=== PATIENT | male | born 1980 | race Caucasian/White ===

== ENCOUNTER 2016-05-17 09:23 | Emergency (ER) | payer BC ==
[~2016-05-17] VITALS: Ht 170.2 cm; Wt 78.0 kg
[2016-05-17 09:32] VITALS: BP 130/80
--- NOTE | 2016-05-17 09:41 | NUR ---
35/M presents to the ED for evaluation of left calm pain x3 weeks. Patient denies injury or trauma to left leg. Patient has mild bruising to left calf. No redness noted. Warm to touch. Patient is tender with palpation. Ambulatory with steady gait. Pt is AOX4, clear speech, VSS.
[2016-05-17] MEDS ORDERED: NACL 0.9% 1,000 ML IV SCH (09:44)
[2016-05-17] MEDS ORDERED: KETOROLAC 30 MG/ML VIAL IVP ONE (09:45)
--- NOTE | 2016-05-17 09:56 | NUR ---
Ultrasound at bedside.
--- NOTE | 2016-05-17 10:06 | NUR ---
Dr. Spangler at bedside.
--- NOTE | 2016-05-17 10:55 | NUR ---
Patient appears to be resting comfortably in bed. Vital Signs within normal limits. Respirations even and unlabored.
--- NOTE | 2016-05-17 11:24 | NUR ---
IV removed, catheter intact and site benign. Applied folded 4x4 gauze and tape to stop bleeding.
[2016-05-17 11:26] VITALS: BP 128/74
--- NOTE | 2016-05-17 11:31 | NUR ---
Chart checked and completed. The patient's care was reviewed and supervised by Michael Stevenson RN.
== END 2016-05-17 11:31 | disposition home or self-care (01) ==
LOC: MED 09:33
DX: M79.662 Pain in left lower leg (principal); R03.0 Elevated blood-pressure reading, without diagnosis of hypertension; D68.51 Activated protein C resistance
CPT/HCPCS: 36415; 80053; 81001; 85025; 93971; 96361; 96374; 99285; J1885; J7030; Q0092